=== PATIENT | male | born 1990 | race Caucasian/White ===

== ENCOUNTER 2020-06-14 12:33 | Emergency (ER) | payer BC, OTHER ==
[2020-06-14] MEDS ORDERED: Lidocaine 1% w/Epinephrine 1:100K 20 ML VIAL ONE (12:56)
[2020-06-14] MEDS ORDERED: Boostrix 0.5 ML (Tdap) VIAL ONE (13:09)
== END 2020-06-14 13:20 | disposition home or self-care (01) ==
LOC: MADERS 12:33
DX: S61.412A Laceration without foreign body of left hand, initial encounter (principal); I10 Essential (primary) hypertension; E66.9 Obesity, unspecified; F17.220 Nicotine dependence, chewing tobacco, uncomplicated; Z79.899 Other long term (current) drug therapy; W26.0XXA Contact with knife, initial encounter
CPT/HCPCS: 12001; 90471; 90715